=== PATIENT | male | born 1995 | race Caucasian/White ===

== ENCOUNTER → 2018-10-26 13:49 | Outpatient (CLI) | payer OTHER, SELFPAY ==
--- NOTE | 2018-10-26 15:33 | CT_ITS ---
CT abdomen pelvis wo con CLINICAL INDICATION: Abdominal pain and bloating, left inguinal hernia. ITS.REASON: LEFT INGUINAL HERNIA ORDERING PHYSICIAN: Lissa Almeida MD PATIENT AGE: 23 years COMPARISON: None TECHNIQUE: Axial images obtained with sagittal and coronal reformats. All CT scans at the facility use one or more dose reduction, viz: automated exposure control, ma/kV adjustment per patient size (including targeted exams where dose is matched to indication, i.e. head), or iterative reconstruction technique. PROCEDURE: Oral Contrast: Raque at IV Contrast: None . FINDINGS: The liver, spleen, adrenal glands, and pancreas have an unremarkable unenhanced CT appearance. No renal or ureteral calculi. No hydronephrosis. 8 mm isodensity upper pole right kidney, 17 mm isodensity upper pole left kidney consistent with renal cysts. No intestinal obstruction or free air.. No evidence of appendicitis. No evidence of inguinal or abdominal wall hernia. There are small lymph nodes in the frontal regions. There is mild multilevel endplate irregularity with Schmorl's nodes in the lumbar spine. No acute bony anomalies are evident. IMPRESSION: 1. No acute abdominal or pelvic findings. 2. Small bilateral renal cysts. 3. Endplate osteochondrosis of the lumbar spine
== END ==
PROVIDERS: PCP Emergency Medicine; Visit Provider Emergency Medicine
DX: K40.90 Unilateral inguinal hernia, without obstruction or gangrene, not specified as recurrent (principal)
CPT/HCPCS: 74176

== ENCOUNTER → 2018-11-12 13:11 | Outpatient (CLI) | payer OTHER, SELFPAY ==
--- NOTE | 2018-11-12 13:15 | XR_ITS ---
XR lumbar spine min 4V Ordering Physician: Nabil Eng MD Patient Age: 23 years: Male HISTORY: ITS.REASON: LOW BACK PAIN . No injury TECHNIQUE: Five-view lumbar spine series. COMPARISON : Sagittal spine reconstructions from CT abdomen pelvis from October 26, 2018. There is also AP view of spine November 2009 spine scoliosis series FINDINGS Vertebral height maintained in overall bodies are intact at the lumbar spine. There is some mild irregularity at inferior endplate again seen at inferior L3, superior anterior L4, superior anterior L5.Mild inferior endplate irregularity at L2, L1 superior T12 and inferior T10 also observed These are best seen on the October CT abdomen reconstructions and reflect some minimal Schmorl's node changes. Less likely likely mild epiphysitis . But the changes at L5 reflect a small limbus vertebra-of neck reflecting theRing apophysis anterior superior corner of L5. The pedicles intact. Facets appear intact. Transverse processes intact. Overlying gas and accounts for the appearance left L1 transverse process on frontal view. It appears intact on the other views. SI joints sacrum unremarkable. Generous stool at the right and transverse colon. IMPRESSION: ------ . The vertebral bodies no acute findings with. Normal alignment. No prominent findings. Minor observations: . There is some mild endplate irregularities reflecting which I favor reflect Schmorl's nodes at multiple levels seen throughout lumbar spine as well as lower thoracic spine. Less likely mild old epiphysitis. These features best appreciated when reviewing this study in conjunction with October CT abdomen reconstructions .Borderline disc space narrowing L3/4 Question scant disc bulge on reviewing recent Dec CT .
== END ==
PROVIDERS: PCP Family Medicine; Visit Provider Family Medicine
DX: M54.5 Low back pain (principal)
CPT/HCPCS: 72110

== ENCOUNTER → 2019-09-27 12:30 | Outpatient (CLI) | payer OTHER, SELFPAY ==
--- NOTE | 2019-09-27 12:32 | US_ITS ---
PROCEDURE: US SOFT TISSUE HEAD AND NECK CLINICAL INDICATION: RT LYMPHADENOPATHY Reported palpable abnormality in the right neck COMPARISON: No exams were available for comparison FINDINGS: Ultrasound performed of the palpable abnormality in the right neck behind the ear showing no sonographic detectable abnormalities. The parotid and submandibular glands have an unremarkable appearance. IMPRESSION: No sonographic abnormalities detected. Suggest CT of the neck without and with contrast for more thorough evaluation if there is indeed a palpable abnormality Dictated by: Torin Acosta MD 09/30/2019 19:53 Electronically signed by Torin Acosta MD in [place] 10/03/2019 07:47
== END ==
PROVIDERS: PCP Family Medicine; Visit Provider Nurse Practitioner
DX: R59.0 Localized enlarged lymph nodes (principal)
CPT/HCPCS: 76536

== ENCOUNTER 2020-03-19 19:54 | Emergency (ER) | payer MEDICAID, SELFPAY ==
[2020-03-19 20:06] VITALS: BP 138/92; PULSE 81; RESP 18; TEMP 36.8; O2SAT 99; BMI 26.6
--- NOTE | 2020-03-19 20:11 | PC.NURSE ---
PT STATES THAT HE TOOK 400MG IBUPROFEN APPROX 3 HR AGO. ALSO 40MG MECLIZINE AND GENERIC MAC SALT APPROX 1.5 HRS AGO.
--- NOTE | 2020-03-19 20:13 | HMH.EDUTC ---
[facility] [place] Disposition Clinical Impression: Migraine Qualifiers: Migraine type: unspecified Status migrainosus presence: with status migrainosus Intractability: not intractable Qualified Code(s): G43.901 - Migraine, unspecified, not intractable, with status migrainosus Disposition: Home, Self-Care Condition on Discharge: Good Instructions: DI for Migraine Additional Instructions: Go home lay down and try to sleep off remainder of Migraine headache No other MOtrin for the next 8 hours you may take Tylenol if you need something else for pain Return if needed Straight to ER if any life threatening symptoms Follow up with family doctor for refills on you migraine medication or for further treatment and evaluation of migraine headache Drink plenty of fluids. Take the medications as directed. Follow up with your regular doctor. GO TO THE ER FOR ANY WORSENING SYMPTOMS Referrals: Scott Mcmillan [Primary Care Provider] - Time of Disposition: 20:49 Medical Decision Making - Medical Records Medical records reviewed: No: I reviewed the patient's medical records. - Stevenson Inquiry Pt receiving controlled substance: No Vital Signs: 03/19/20 20:06 03/19/20 20:53 Temperature 98.2 F 98.2 F Temperature Source Oral Pulse Rate 81 Pulse Rate [Left Radial] 81 Respiratory Rate 18 18 Blood Pressure 138/92 H Blood Pressure [Left Arm] 138/92 H Blood Pressure Mean [Left Arm] 107 Blood Pressure Source [Left Arm] Automatic Cuff Blood Pressure Position [Left Arm] Sitting 02 Sat by Pulse Oximetry 99 Oxygen Delivery Method Room Air Orders (Tests/Meds): ED MEDICATIONS Discontinued Medications Generic Name Dose Route Start Last Admin Trade Name Kevin PRN Reason Stop Dose Admin Diphenhydramine HCl 25 mg 03/19/20 20:17 03/19/20 20:34 Benadryl 50mg/1ml Vial IM 03/19/20 20:18 25 mg ONCE ONE Administration Ketorolac Tromethamine 60 mg 03/19/20 20:17 03/19/20 20:34 Toradol 60mg/2ml Vial IM 03/19/20 20:18 60 mg ONCE ONE Administration Metoclopramide HCl 10 mg 03/19/20 20:21 03/19/20 20:34 Reglan 10mg/2ml Vial IM 03/19/20 20:22 10 mg ONCE ONE Administration [facility] UTC HPI - General Stated complaint: vomiting,PRESCOTT Time Seen by Provider: 03/19/20 20:13 Mode of Arrival: Ambulatory Source of Information: Patient Limitations: No Limitations Description of Symptoms (Recalled from Triage Doc. by RN): PT C/O PRESCOTT, DIZZINESS, N/V X3 DAYS. PT REPORTS HX OF CHRONIC MIGRAINE DISORDER. HEENT Symptoms (Recalled from RN notes): Yes (PRESCOTT, DIZZINESS) Resp Symptoms (Recalled from RN notes): No Skin Symptoms (Recalled from RN notes): No MS Symptoms (Recalled from RN notes): No Functional Status (Recalled from RN notes): N/A - History of Present Illness Provider Complaint: He c/o migraine headache that he has been unable to break. It started yesterday. Today he has taken his normal migraine medications with very little relief. He has a history of migraine headache. - Related Data Home Medications Medication Instructions Recorded Confirmed minocycline 100 mg capsule 100 mg PO BID 10/20/18 11/19/18 topiramate 100 mg tablet 100 mg PO BID 10/20/18 11/19/18 Previous Rx's Medication Instructions Recorded cyclobenzaprine 7.5 mg tablet 7.5 mg PO TID PRN #30 tab 10/20/18 Allergies Allergy/AdvReac Type Severity Reaction Status Date / Time TAVIST-D Allergy Intermediate I-HIVES Uncoded 10/20/18 16:06 - Worker's Comp Is this a Worker's Comp case?: No [facility] History - Hepatitis A Screen Drug use history?: No High risk sexual behaviors?: No History of sexually transmitted infection?: No Currently employed?: No Childcare worker?: No Do you have indoor plumbing?: Yes Do you have electricity?: Yes Attestation statement:: This patient has been screened for Hepatitis A risk factors. I have reviewed the patient's past medical history: Yes Medical History: Denies:: Diabetes Mellitus Typ
[2020-03-19 20:53] VITALS: BP 138/92; PULSE 81; RESP 18; TEMP 36.8; O2SAT 99
== END 2020-03-19 20:55 | disposition home or self-care (01) ==
PROVIDERS: Emergency Provider Nurse Practitioner Family; PCP Pediatrics
DX: G43.901 Migraine, unspecified, not intractable, with status migrainosus (principal)
CPT/HCPCS: 96372; 99201

== ENCOUNTER 2022-01-13 18:15 | Emergency (ER) | payer BC, MEDICAID, SELFPAY ==
--- NOTE | 2022-01-13 | ECG_ITS ---
APPROVED REPORT Exam: Resting ECG HR:71 bpm ECG Measurements Heart Rate 71 AXES MT 143 P 74 QRSd 114 QRS -4 QT 374 T 69 QTc 396 Conclusion SINUS RHYTHM WITH SINUS ARRHYTHMIA MODERATE INTRAVENTRICULAR CONDUCTION DELAY [110+ ms QRS DURATION] BORDERLINE ECG UNCONFIRMED REPORT Electronically signed by : Nas Tucker MD 01/14/2022 15:02:37
[2022-01-13 18:15] VITALS: BP 118/85; PULSE 72; RESP 16; TEMP 37.2; O2SAT 98; BMI 28.1
--- NOTE | 2022-01-13 18:22 | PC.NURSE ---
ED MD at
--- NOTE | 2022-01-13 18:25 | XR_ITS ---
PROCEDURE INFORMATION: Exam: XR Chest Exam date and time: 01/13/2022 6:25 PM Age: 26 years old Clinical indication: Shortness of breath and other: Palpatations per patient; Patient HX: Heart palpatations, shortness of breath, feels like he is going to pass out. He had this problem last week and came to er for it. Wearing a holter monitor. ; Additional info: Cough TECHNIQUE: Imaging protocol: XR of the chest. Views: 1 view. COMPARISON: ABDPELWO CT abdomen pelvis wo con 10/26/2018 4:03 PM FINDINGS: Lungs: The lungs are clear. Pleural spaces: No regions of pleural effusion Heart/Mediastinum: The heart is normal size. Bones/joints: Visualized osseous structures unremarkable. IMPRESSION: No evidence of acute cardiopulmonary disease.
--- NOTE | 2022-01-13 18:30 | PC.NURSE ---
Radiology at bedside
--- NOTE | 2022-01-13 18:48 | HMH.EDARPALP ---
ED Disposition Clinical Impression: Palpitations, Anxiety Disposition: Home, Self-Care Condition on Discharge: Good Instructions: DI for Palpitations Referrals: Provider,Referral, [Referring] - - Critical Care Critical Care Time: No Attestation: On 01/13/22, the high probability of a clinically significant, sudden or life threatening deterioration of the following system(s) required my full and direct attention, intervention and personal management. The time I documented below is in addition to time spent performing reported procedures but includes the following listed in this critical care notation. Medical Decision Making - Medical Records Medical records reviewed: Yes: I reviewed the patient's medical records. - Stevenson Inquiry Pt receiving controlled substance: No Stevenson was queried for this patient: No Vital Signs: 01/13/22 18:15 Temperature 99 F Temperature Source Oral Pulse Rate [Radial] 72 Respiratory Rate 16 Blood Pressure [Right Arm] 118/85 Blood Pressure Mean [Right Arm] 96 Blood Pressure Position [Right Arm] Sitting 02 Sat by Pulse Oximetry 98 Oxygen Delivery Method Room Air - Lab Data Lab Results 01/13/22 18:50: WBC 7.9, RBC 5.02, Hgb 15.7, Hct 46.6, MCV 92.9, MCH 31.2, MCHC 33.6, RDW 13.5, Plt Count 272, MPV 8.0, Neut % (Auto) 77.2, Lymph % (Auto) 15.8, Beckham % (Auto) 5.6, Eos % (Auto) 0.4, Baso % (Auto) 0.9, Neut # (Auto) 6.1, Lymph # (Auto) 1.3, Beckham # (Auto) 0.4, Eos # (Auto) 0.0, Baso # (Auto) 0.1 01/13/22 18:50: Sodium 138, Potassium 3.4 L, Chloride 104, Carbon Dioxide 23, Anion Gap 14.4, BUN 15, Creatinine 0.80, Estimated Creat Clear 166, Estimated GFR 117, Est GFR ( Amer) 141, Glucose 100, Calcium 8.9, Total Bilirubin 0.7, AST 34, ALT 24, Alkaline Phosphatase 45, Troponin I < 0.01, NT-Pro-B Natriuret Pep 39.0, Total Protein 8.1, Albumin 5.0, Globulin 3.1, Albumin/Globulin Ratio 1.6, TSH 2.11 Result diagrams: 01/13/22 18:50 01/13/22 18:50 Orders (Tests/Meds): ED MEDICATIONS Discontinued Medications Generic Name Dose Route Start Last Admin Trade Name Freq PRN Reason Stop Dose Admin Potassium Chloride 40 meq 01/13/22 19:29 01/13/22 19:47 Potassium Chloride 20meq Tab PO 01/13/22 19:30 40 meq ONCE ONE Administration ORDERS Category Date Time Status XR chest portable Stat Exams 01/13/22 18:25 Taken Troponin I Q3H Lab 01/13/22 21:30 Ordered Troponin I Q3H Lab 01/14/22 00:30 Ordered - Radiology Data #1 Image(s): Chest Image Reviewed: Yes I reviewed the patient's radiology results, Yes I reviewed the patient's radiology image, Yes I have reviewed radiologist's interpretation Preliminary Findings: Normal/NAD - ECG Data Tracing #1 I reviewed this ECG and interpreted as documented below: Normal ventricular rate 71 bpm, [place] interval 143 ms, normal QTC. Sinus rhythm with occasional sinus arrhythmia. ECG initial impression date: 01/13/22 ECG initial impression time: 18:13 - Reevaluation(s) Time: 19:57 Reevaluation #1: On reevaluation patient is feeling much better. He is remained hemodynamically stable. Slightly hypoxic kalemia which was replaced. Patient will follow up with his cco & president tomorrow for Holter monitor interrogation. Was given strict return precautions. Verbalized understanding. Medical Decision Narrative: 26-year-old male presented to the emergency department with some palpitations. Patient appears to be having these issues from time to time. Does have a Holter monitor which is being interrogated tomorrow. Currently hemodynamically stable. Work-up initiated. Arrhythmia/Palpitations HPI - General Chief Complaint: Arrhythmia/Palpitations Stated Complaint: Palpatations Time Seen by Provider: 01/13/22 18:20 Mode of Arrival: Ambulatory Limitations: No Limitations - History of Present Illness HPI narrative: 46-year-old male presented to the emergency department with some palpitations. Carlos Eduardo
[2022-01-13 19:07] LABS: Basophils # 0.1 K/mm3 (0-0.2); Basophils % 0.9 % (0.1-2.0); Eosinophils % 0.4 % (0.1-12.0); Hematocrit 46.6 % (42.0-52.0); Hemoglobin 15.7 g/dL (14.1-18.0); Lymphocytes # 1.3 K/mm3 (0.7-4.5); Lymphocytes % 15.8 % (10-50); Mean Corpuscular HGB Conc 33.6 g/dL (31.8-35.4); Mean Corpuscular Hemoglobin 31.2 pg (27.0-31.2); Mean Corpuscular Volume 92.9 fl (80-94); Monocytes # 0.4 K/mm3 (0.1-1.0); Monocytes % 5.6 % (1.7-9.3); Neutrophils # 6.1 K/mm3 (1.8-7.8); Neutrophils % 77.2 % (37.0-80.0); Platelet Count 272 K/mm3 (142-424); Red Blood Count 5.02 M/mm3 (4.60-6.20); Red Cell Distribution Width 13.5 % (11.5-17.5); White Blood Count 7.9 K/mm3 (4.8-10.8)
[2022-01-13 19:09] LABS: Chloride 104 mmol/L (98-107); Potassium 3.4 mmoL/L (3.5-5.1); Sodium 138 mmol/L (136-145)
[2022-01-13 19:12] LABS: Alanine Aminotransferase 24 U/L (12-78); Albumin/Globulin Ratio 1.6 (1.1-1.8); Alkaline Phosphatase 45 U/L (38-126); Anion Gap 14.4 mEq/L (5-15); Aspartate Amino Transferase 34 U/L (17-59); Bilirubin,Total 0.7 mg/dl (0.2-1.3); Blood Urea Nitrogen 15 mg/dl (9-20); Calcium 8.9 mg/dl (8.4-10.2); Carbon Dioxide 23 mmol/L (22.0-30.0); Creatinine Clearance Estimated 166 mL/min (50-200); Estimated Glomerular Filt Rate 117 ml/min (>60); GFR (African American) 141 ML/MIN (>60); Globulin 3.1 g/dL (1.3-3.2); Glucose 100 mg/dl (74-100); Total Protein,Serum 8.1 g/dl (6.3-8.2)
[2022-01-13 19:26] LABS: Troponin I < 0.01 ng/ml (0.00-0.034)
[2022-01-13 19:43] LABS: Thyroid Stimulating Hormone 2.11 uIU/mL (0.465-4.68)
[2022-01-13 20:05] VITALS: BP 124/62; PULSE 60; RESP 20; TEMP 36.8; O2SAT 99
== END 2022-01-13 20:10 | disposition home or self-care (01) ==
PROVIDERS: Emergency Provider Emergency Medicine; PCP Family Medicine
DX: R00.2 Palpitations (principal); E87.6 Hypokalemia; F41.9 Anxiety disorder, unspecified; Z88.8 Allergy status to other drugs, medicaments and biological substances
CPT/HCPCS: 71045; 80053; 83880; 84443; 84484; 85025; 93005; 99284